=== PATIENT | male | born 1985 | race African-American/Black ===

== ENCOUNTER 2021-03-02 20:52 | Observation (INO) | payer BC, SELFPAY ==
[2021-03-02 20:53] VITALS: BP 110/77; PULSE 96; RESP 16; TEMP 36.3; O2SAT 98; BMI 34.6
--- NOTE | 2021-03-02 21:27 | CT_ITS ---
EXAMINATION : Head CT w/out contrast HISTORY : head injury COMPARISON : 02/18/2014. TECHNIQUE : Multiple contiguous axial images were obtained from the skull base to the vertex without intravenous contrast. A radiation dose optimization technique was used for this scan. FINDINGS : The ventricles and sulci are normal in size. There is no evidence for acute intracranial hemorrhage, mass effect, or midline shift. There is no extra-axial fluid collection. There is normal davis-white differentiation, without CT evidence of acute ischemia or infarct. Increased area of encephalomalacia within the right frontal lobe/insular region. Craniotomy defect in the right frontotemporal region. The orbits are unremarkable. The paranasal sinuses are clear. The mastoid air cells are well-aerated. Moderately sized right frontal scalp hematoma. CT/Brain/Head without Contrast IMPRESSION: Moderately sized right frontal scalp hematoma. No fracture or intracranial hemorrhage. Encephalomalacia of the right frontal lobe/insular region, increased in size since prior CT in 2013. This correlates with history of tumor resection. Electronically Signed: Luther Cummings MD at 22:34 EDT Tel , Service support ,
--- NOTE | 2021-03-02 21:28 | EKG12_ITS ---
Test Reason : SEIZURE Blood Pressure : / mmHG Vent. Rate : 083 BPM Atrial Rate : 083 BPM P-R Int : 160 ms QRS Dur : 086 ms QT Int : 376 ms P-R-T Axes : 067 069 008 degrees QTc Int : 441 ms Normal sinus rhythm Normal ECG Confirmed by VENTURA HENSON, YUMIKO ([id number]), film and video editor ISMAEL FIELDS ([id number]) on 03/03/2021 11:24:33 AM Referred By: HUGO Confirmed By:YUMIKO WHITEHEAD MD
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
[2021-03-02 21:45] LABS: Absolute Lymphocyte Count 1.99 X10^3/uL (0.83-4.51); Basophil# 0.03 X10^3/uL; Basophil% 0.2 % (0-1); Eosinophil# 0.09 X10^3/uL; Eosinophils% 0.7 % (0-5); Hematocrit 45.7 % (40-54); Hemoglobin 15.5 g/dL (13.0-16.5); Lymphocyte # 1.99 X10^3/ul (0.83-4.51); Lymphocyte % 14.9 % (19-41); Mean Corp Hgb Conc 33.9 g/dL (32-36); Mean Corpuscular Hgb 29.6 pg (27.0-32.0); Mean Corpuscular Volume 87.4 fL (80-94); Monocyte# 1.15 X10^3/uL; Monocyte% 8.6 % (0-10); NRBC Flagged by Analyzer 0 % (0-5); Neutrophil # 10.01 X10^3/uL (2.7-7.7); Neutrophil % 75.1 % (47-70); Platelet Count 219 K/mm3 (150-450); RBC Distribution Width CV 13.3 % (11.6-14.6); RBC Distribution Width SD 42.6 fl (35.1-43.9); Red Blood Count 5.23 M/mm3 (4.6-6.2); White Blood Count 13.3 K/mm3 (4.4-11.0)
[2021-03-02 21:57] LABS: Anion Gap 7 (5-15); BUN 13 mg/dL (7-18); BUN/Creat Ratio 10.7 RATIO (10-20); Calcium,Total 8.8 mg/dL (8.5-10.1); Chloride 105 mmol/L (98-107); Creatinine, Serum 1.22 mg/dL (0.70-1.30); EST Glomerular Filtration Rate 72 mL/min (>60); Est Glom Filt Rate - Afr Amer 87 mL/min (>60); Estimated Creatinine Clearance 84.51 ml/min; Glucose 107 mg/dL (74-106); Potassium 4.1 mmol/L (3.5-5.1); Sodium Level 139 mmol/L (136-145)
[2021-03-02] MEDS: Acetaminophen 500 MG Tablet 1000 MG PO (22:01)
[2021-03-02] MEDS: Ondansetron 4 MG/2 ML Vial IV (22:01)
[2021-03-02 23:08] VITALS: PULSE 100; RESP 17; O2SAT 98
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
[2021-03-02 23:34] VITALS: BP 125/78; PULSE 76; RESP 18; TEMP 36.5; O2SAT 98
--- NOTE | 2021-03-02 23:39 | ED.RN ---
dr. maggy talavera with patient eating food.
--- NOTE | 2021-03-02 23:40 | TELEMED_ITS ---
[facility] Telemed has confirmed receipt of a request for visit. This document confirms receipt of the order initiating the consult. To find the results of the consultation, please view the patient's reports for the scanned Telemed Consult.
[2021-03-03] VITALS (10 sets, daily range): BP systolic 116–152; BP diastolic 70–87; PULSE 68–99; RESP 14–18; TEMP 36.1–36.6; O2SAT 96–99; BMI 34.2
[2021-03-03 00:19] LABS: CPK Total, Creatine Kinase 2635 U/L (39-308); Prolactin 5.1 ng/mL
--- NOTE | 2021-03-03 00:37 | MRI_ITS ---
STUDY: MRI BRAIN WITH AND WITHOUT CONTRAST REASON FOR EXAM: Male, 35 years old. seizures, H/O PRIOR BRAIN SX TECHNIQUE: Standardized multiplanar fat and water weighted pulse sequences were obtained. IV 20CC DOTAREM was administered for the contrast portion of the examination. COMPARISON: CT 03/02/2021 FINDINGS: Normal size of the ventricles and extra-axial spaces for the patient''s age. Normal white matter tracts of the supratentorial brain. There is no evidence for recent intracranial ischemia or other cause of cytotoxic edema on diffusion weighted imaging (DWI). Normal T2* images of the brain without demonstrated susceptibility artifact. There is no demonstrated hemosiderin stain. Normal bilateral basal ganglia. Normal thalami. There is no extra-axial fluid accumulation. Normal flow voids within the major intracranial circulation suggesting patency by spin echo criteria. Normal venous enhancement. 3.5 x 4.5 cm oval hyperintense lesion within the anterior right parietal lobe and at the site of prior craniotomy does not demonstrate restricted diffusion or contrast enhancement worrisome for recurrent low-grade glioma. There is mild mass effect with 2 mm of [id number] midline shift (subfalcine herniation). Normal sella turcica, pituitary gland, infundibular stalk, optic chiasm and hypothalamus. Normal tectal plate and pineal gland. Normal midbrain, emily and medulla. Normal cerebellum. Normal basal cisterns. Normal bilateral temporal bones. Normal bilateral internal auditory canals. No demonstrated orbital abnormality, within the constraints of a routine brain study. Normal visualized paranasal sinuses. Normal calvarium and skull base. Normal visualized soft tissue structures. Normal visualized upper cervical spine. MRI/Brain W/WO Contrast IMPRESSION: 4.5 cm oval hyperintensity without contrast enhancement but with mass effect within the anterior right parietal lobe worrisome for recurrent low-grade glioma. Mass effect with 2 mm of [id number] midline shift (subfalcine herniation). Electronically Signed: Floyd Robert MD at 11:59 EDT Tel , Service support ,
[2021-03-03] MEDS: Ibuprofen 400 MG Tablet PO (01:06)
[2021-03-03 06:32] LABS: Absolute Lymphocyte Count 2.48 X10^3/uL (0.83-4.51); Absolute Neutrophil Count 7.5 X10^3/uL (2.0-7.7); Basophil# 0.04 X10^3/uL; Basophil% 0.4 % (0-1); Eosinophil# 0.13 X10^3/uL; Eosinophils% 1.2 % (0-5); Hematocrit 44.2 % (40-54); Hemoglobin 14.6 g/dL (13.0-16.5); Lymphocyte # 2.48 X10^3/ul (0.83-4.51); Mean Corpuscular Hgb 29.3 pg (27.0-32.0); Mean Corpuscular Volume 88.6 fL (80-94); Mean Platelet Vol. 10.9 fl (6.2-12.0); Monocyte# 1.04 X10^3/uL; Monocyte% 9.2 % (0-10); NRBC Flagged by Analyzer 0 % (0-5); Neutrophil # 7.54 X10^3/uL (2.7-7.7); Neutrophil % 66.8 % (47-70); Platelet Count 206 K/mm3 (150-450); RBC Distribution Width CV 13.4 % (11.6-14.6); RBC Distribution Width SD 43.7 fl (35.1-43.9); Red Blood Count 4.99 M/mm3 (4.6-6.2); White Blood Count 11.3 K/mm3 (4.4-11.0)
[2021-03-03 07:00] LABS: ALB/GLOB Ratio 1.2 RATIO (0.9-2.4); AST(SGOT) 76 U/L (15-37); Alanine Aminotransfer ALT/SGPT 87 U/L (16-61); Alkaline Phosphatase 95 U/L (45-117); Anion Gap 6 (5-15); BUN 13 mg/dL (7-18); BUN/Creat Ratio 9.6 RATIO (10-20); Calcium,Total 8.9 mg/dL (8.5-10.1); Chloride 107 mmol/L (98-107); Creatinine, Serum 1.35 mg/dL (0.70-1.30); EST Glomerular Filtration Rate 64 mL/min (>60); Est Glom Filt Rate - Afr Amer 77 mL/min (>60); Estimated Creatinine Clearance 76.37 ml/min; Globulin 3.2 g/dL (2.2-4.2); Glucose 106 mg/dL (74-106); Potassium 3.8 mmol/L (3.5-5.1); Protein, Total 7.2 g/dL (6.4-8.2); Sodium Level 139 mmol/L (136-145)
[2021-03-03] MEDS: Famotidine 20 MG Tablet PO (10:43)
--- NOTE | 2021-03-03 16:18 | PCM.DC.SUM ---
Providers Date of Admission: 03/02/21 Primary Care Physician: No Primary Care Phys Reason For Visit: NEW ONSET SEIZURE Diagnosis Discharge Diagnosis (1) New onset seizure: Status: Acute Code(s): R56.9 - Unspecified convulsions Medications at Discharge Home Medications NK 03/02/21 Hospital Course Operations None Procedures None Summary of Care Provided Minutes Spent on Discharge: 45 Hospital Course: Mr. Corado is a 35-year-old male who presented to the emergency department [facility] on 03/02/2021 for a rash. He reported that when he went to bed he felt fine but when he woke up he had a rash on his chest and face that he thought was related to his cat scratch. He now thinks this is from something he ate the night previously. On arrival to the emergency department he had a laceration on his right forehead petechia around his eyes and bites on his tongue. Significant concerned that he had a seizure. The patient does have history of neurosurgery related to the removal of a benign tumor. He was unable to tell me where this was performed or what the pathological diagnosis was. He does not indicate that he is on any consistent follow-up for this. A CT done in the emergency department showed a moderate right frontal scalp hematoma, encephalomalacia of the right frontal and insular region that had increased in size since 2013. Given the increase in size an MRI was performed after the admitting hospitalist discussed the case with the radiologist on-call. Neurosurgery was consulted in the emergency department and per documentation recommended Keppra 500 mg twice a day after an EEG was obtained irrespective of the EEG results. They also admit recommended follow-up with outpatient neurology. The EEG was done and showed no definitive epileptiform activity. The MRI of the brain showed a 4.5 cm oval hyperintensity without contrast enhancement but with mass-effect on the anterior right parietal lobe that was worrisome for recurrent low-grade glioma and mass-effect with 2 mm of right to left midline shift. Given the read of the MRI I discussed the case with neurosurgery at [facility] and they recommended transfer for further work-up and potential surgery. The patient was accepted by the hospitalist at [facility](Dr. Kramer). Patient was transferred in stable condition. With regards to his rash he was placed on prednisone 40 mg daily for 5 days. Physical Exam Const alert, oriented x3, no apparent distress and average body habitus Constitutional Narrative: Young male sitting up in bed eating lunch, watching television, appears comfortable General Appearance: cooperative, comfortable, well kempt and well developed Orientation / Consciousness: awake, oriented to person, oriented to place and oriented to time HEENT normocephalic HEENT Narrative: Laceration right frontal forehead with dressing in place, no significant drainage Eyes PERRL and EOMs intact bilaterally Resp normal respiratory effort, no retractions, no use of accessory muscles and clear to auscultation bilaterally Cardio regular rate, regular rhythm, S1 normal heart sound, S2 normal heart sound, no murmurs, no rub, no gallops, no clicks and no JVD GI normal to inspection, nondistended, normoactive bowel sounds, soft to palpation, non-tender and non-distended Extremity normal to inspection, full ROM and no clubbing, cyanosis or edema Skin Skin Narrative: Mildly erythematous in the chest region Neuro oriented x3, CN's II-XII intact bilaterally, moves all extremities and no focal motor deficits Neuro Narrative: Reflexes are 2+ out of 4 Sensorium / Orientation: awake, alert, oriented to person, oriented to place and oriented to time Speech: speech normal Motor Exam: strength 5/5 throughout Psych affect normal Weight / BMI Weight Weight: 105.3 kg Body Mass Index (BMI) 34.2 ABG / Lab / Microbiology Data Result Diagrams: 03/03/21 06:20 03/03/21 06:20 Laboratory: Laboratory Results - last 24 hr 03/02/21 03/02/21 03/02/21 21:30 21:30 21:30 WBC 13.3 H RBC 5.23 Hgb 15.5 Hct 45.7 MCV 87.4 MCH 29.6 MCHC 33.9 RDW Std Deviation 42.6 RDW Coeff of Leo 13.3 Plt Count 219 MPV 11.0 Immature Gran % (Auto) 0.500 Neut % (Auto) 75.1 H Lymph % (Auto) 14.9 L [place] % (Auto) 8.6 Eos % (Auto) 0.7 Baso % (Auto) 0.2 Absolute Neuts (auto) 10.0 H Absolute Lymphs (auto) 1.99 Nucleated RBC % 0 Sodium 139 Potassium 4.1 Chloride 105 Carbon Dioxide 27.0 Anion Gap 7 BUN 13 Creatinine 1.22 Estim Creat Clear Calc 84.51 Est GFR (MDRD) Af Amer 87 Est GFR (MDRD) Non-Af 72 BUN/Creatinine Ratio 10.7 Glucose 107 H Calcium 8.8 Total Bilirubin AST ALT Alkaline Phosphatase Total Creatine Kinase 2635 H Total Protein Albumin Globulin Albumin/Globulin Ratio Prolactin 5.1 03/03/21 03/03/21 06:20 06:20 WBC 11.3 H RBC 4.99 Hgb 14.6 Hct 44.2 MCV 88.6 MCH 29.3 MCHC 33.0 RDW Std Deviation 43.7 RDW Coeff of Leo 13.4 Plt Count 206 MPV 10.9 Immature Gran % (Auto) 0.400 Neut % (Auto) 66.8 Lymph % (Auto) 22.0 [place] % (Auto) 9.2 Eos % (Auto) 1.2 Baso % (Auto) 0.4 Absolute Neuts (auto) 7.5 Absolute Lymphs (auto) 2.48 Nucleated RBC % 0 Sodium 139 Potassium 3.8 Chloride 107 Carbon Dioxide 26.0 Anion Gap 6 BUN 13 Creatinine 1.35 H Estim Creat Clear Calc 76.37 Est GFR (MDRD) Af Amer 77 Est GFR (MDRD) Non-Af 64 BUN/Creatinine Ratio 9.6 L Glucose 106 Calcium 8.9 Total Bilirubin 0.60 AST 76 H ALT 87 H Alkaline Phosphatase 95 Total Creatine Kinase Total Protein 7.2 Albumin 4.0 Globulin 3.2 Albumin/Globulin Ratio 1.2 Prolactin Radiography Diagnostic Testing: Radiology Impression Brain CT 03/02/21 21:27 IMPRESSION: Moderately sized right frontal scalp hematoma. No fracture or intracranial hemorrhage. Encephalomalacia of the right frontal lobe/insular region, increased in size since prior CT in 2013. This correlates with history of tumor resection. Electronically Signed: Luther Cummings MD at 22:34 EDT Tel , Service support , Brain MRI 03/03/21 00:37 IMPRESSION: 4.5 cm oval hyperintensity without contrast enhancement but with mass effect within the anterior right parietal lobe worrisome for recurrent low-grade glioma. Mass effect with 2 mm of [id number] midline shift (subfalcine herniation). Electronically Signed: Floyd Robert MD at 11:59 EDT Tel , Service support , Meaningful Use Info Meaningful Use Diagnoses (Choose all that apply): None applicable Discharge Plan Admission Admit Date/Time: 03/02/21 23:31 Attending Provider: Maya Carrillo Primary Care Provider: Care Physician,No Primary Instructions Additional Instructions / Restrictions: Patient Problems: Altered Health Status related to Hospitalization Patient Goals: *Optimal Level of Health *Keep Appointments *Medication Compliance *Remain Safe Discharge Orders/Prescriptions Prescriptions: No Action NK RF: 0 Referrals / Follow Up: Care Physician,No Primary [Primary Care Provider] - Disposition Disposition (needs filled in before D/C Order can be placed): Acute Care Hospital Charges/Coding Visit Charges Inpatient E&M: 22459 Disch Hosp
== END 2021-03-03 17:25 | disposition short-term general hospital (02) ==
LOC: ED 21:41 → PCU 23:55
PROVIDERS: Admitting Provider Hospitalist; Emergency Provider Emergency Medicine; Visit Provider Internal Medicine
DX: R56.9 Unspecified convulsions (principal); R21 Rash and other nonspecific skin eruption; S00.03XA Contusion of scalp, initial encounter; W22.03XA Walked into furniture, initial encounter; Y93.9 Activity, unspecified; Y92.9 Unspecified place or not applicable; Y99.9 Unspecified external cause status; R23.3 Spontaneous ecchymoses; R07.9 Chest pain, unspecified; G93.89 Other specified disorders of brain
CPT/HCPCS: 36415; 70450; 70553; 80048; 80053; 82550; 84146; 85025; 93005; 95819; 96374; 99218; 99285; A9575; A4216; G0378; J2405

== ENCOUNTER 2021-08-21 12:43 | Emergency (ER) | payer BC, SELFPAY ==
[2021-08-21 12:44] VITALS: BP 136/103; PULSE 95; RESP 16; TEMP 36.9; O2SAT 98; BMI 35.9
[2021-08-21 14:26] VITALS: BP 114/87; PULSE 91; RESP 20; O2SAT 98
--- NOTE | 2021-08-21 14:27 | CT_ITS ---
STUDY: CTA CHEST REASON FOR EXAM: Male, 35 years old. Chest pain, history of cancer rule out PE. Cough and chest pain. RADIATION DOSAGE (If Supplied By Facility): CTDIvol = ( 13.80 ) mGy, DLP = ( 527.00 ) mGycm TECHNIQUE: The examination was performed with the intravenous administration of IV 100mL Isovue-370. Post-processing of the angiographic images was performed, with multiplanar reformation and 3D reconstruction. Individualized dose optimization techniques were used for this CT. COMPARISON: None. FINDINGS: Small benign-appearing bilateral axillary lymph nodes. Normal enhancement of the main pulmonary artery and right and left pulmonary arteries. Normal enhancement of the bilateral peripheral pulmonary arteries. There is no demonstrated pulmonary embolism. Normal thoracic aorta and visualized great vessels. There is no demonstrated aortic dissection. Normal heart and pericardium. Normal mediastinum. Normal hilar regions. Normal visualized trachea and bronchi. The lungs are well expanded. Azygos lobe. Normal pulmonary parenchyma. Normal pleura. Normal chest wall structures. Normal osseous structures. Fatty infiltration of liver. There is a 2.6 cm x 2.5 cm cyst in the upper medial pole of the left kidney. CT/CTA Chest W/WO Contrast IMPRESSION: Diffuse fatty infiltration of the liver. The lungs are clear. No evidence of pulmonary embolism. Electronically Signed: Taras Mathews MD at 15:41 EST , Service support ,
--- NOTE | 2021-08-21 14:28 | EKG12_ITS ---
Test Reason : CP Blood Pressure : / mmHG Vent. Rate : 085 BPM Atrial Rate : 085 BPM P-R Int : 154 ms QRS Dur : 084 ms QT Int : 370 ms P-R-T Axes : 067 062 027 degrees QTc Int : 440 ms Normal sinus rhythm Normal ECG Confirmed by VENTURA HENSON, YUMIKO ([id number]), sound editor ISMAEL FIELDS ([id number]) on 08/25/2021 9:35:39 AM Referred By: Confirmed By:YUMIKO WHITEHEAD MD
--- NOTE | 2021-08-21 14:29 | ED.VIS.CHEST ---
HPI History of Present Illness Chief Complaint: Chest Pain Detail of Chief Complaint: Chest pain Informant: patient Onset/Context/Timing Onset: Today and Hours Activity at onset: sudden Timing: Continuous Quality: Positive for Sharp Location: Substernal Current Severity: Mild Maximum Severity: Moderate Worsened By: Nothing Relieved By: Nothing Associated Symptoms: Positive for Dyspnea; Negative for Nausea, Vomiting, Diaphoresis, Cough, Fever, Lightheadedness, Acid Reflux and Palpitations Narrative Narrative: Patient is a 35-year-old male with history of brain cancer who was sent to the emergency department by Dr. Toni Dunbar to evaluate for PE. Apparently the medication he is taking for his brain tumor can cause blood clots. Patient denies fever, chills night sweats. He denies headache. No change in vision or blurred vision. [place] decreased hearing or ringing in his ears. He denies rhinorrhea or congestion. Denies sore throat. He denies cough. Nothing exacerbates or precipitated the chest pain. Nothing has alleviated the chest pain. Patient denies abdominal pain, nausea, vomiting diarrhea. Patient denies leg pain, swelling discoloration. Prior Similar Symptoms: No Recent Illness/Hospitalization: Yes CVD Risk Factors: Negative for Hypertension, Diabetes, Hypercholesterolemia, Family History 1' </=55 and Smoking PE Risk Factors: Positive for Cancer and - (Chemotherapeutic agent is known to cause VTE); Negative for Recent Travel/Surgery, Recent Immobilization, Prior DVT or PE and OCP + Smoking + >/=35 TAD Risk Factors: Negative for Marfan's Syndrome, Hypertension and Family History [facility] Medical History Brain tumor Home Medications levetiracetam 1,000 mg PO DAILY 08/21/21 [History Last Taken Unknown] ondansetron HCl 8 mg PO DAILY 08/21/21 [History Last Taken Unknown] temozolomide 360 mg PO DAILY 08/21/21 [History Last Taken Unknown] Allergy/AdvReac Type Severity Reaction Status Date / Time acetaminophen [From Vicodin] Allergy Itching Verified 08/21/21 12:44 hydrocodone bitartrate Allergy Itching Verified 08/21/21 12:44 [From Vicodin] shellfish derived Allergy Angioedema Verified 08/21/21 12:44 Family History Other Diabetes Surgical History H/O brain surgery Social History (Updated 08/21/21 @ 14:[address] Lamberto Velasquez MD) household members: none Smoking Status: Never smoker substance use type: does not use ROS ROS ED Constitutional Constitutional ED: Denies chills, fever(s), subjective, sweats or weight loss Eyes Eyes: Denies none ENT ENT ED: Denies ear pain, rhinorrhea or sore throat Cardiovascular Cardiovascular: Reports as per HPI; Denies orthopnea Respiratory/Chest Respiratory/Chest: Reports dyspnea; Denies cough, dyspnea on exertion, orthopnea or sputum Gastrointestinal Gastrointestinal: Denies abdominal pain, diarrhea, nausea or vomiting Genitourinary Genitourinary ED: Denies dysuria, hematuria or urinary frequency Integumentary Denies rash Neurologic Neurologic: Denies headache(s), paresthesias or weakness Psychiatric Psychiatric: Reports anxiety; Denies depression Hematologic/Lymphatic Hematologic/Lymphatic: Denies easy bleeding or easy bruising EXAM Physical Exam Const Vital Signs: 08/21/21 12:44 08/21/21 14:26 08/21/21 16:55 Temperature 98.5 F Temperature Source Temporal Pulse Rate 95 91 71 Respiratory Rate 16 20 H Respiratory Effort Normal Blood Pressure 136/103 H 114/87 H 122/79 H Blood Pressure Mean 114 96 93 Pulse Ox 98 98 98 Oxygen Delivery Method Room Air Room Air Room Air 08/21/21 18:14 Temperature Temperature Source Pulse Rate 67 Respiratory Rate 17 Respiratory Effort Blood Pressure 112/77 Blood Pressure Mean 88 Pulse Ox 97 Oxygen Delivery Method Room Air Positive well nourished and well developed General Appearance ED: well developed and NAD; Negative for pallor HEENT Reports moist mucous membranes HEENT Narrative: Ears normal. Nares patent. normocephalic and atraumatic Eyes PERRL and EOMs intact bilaterally General Eye ED: Negative for pale conjunctiva or scleral icterus Neck no lymphadenopathy, supple and no JVD Chest Wall inspection of chest normal and palpation of chest normal Resp normal respiratory effort Effort and Inspection: respiratory distress Cardio regular rate, regular rhythm, S1 normal heart sound and S2 normal heart sound GI normal to inspection, nondistended, normoactive bowel sounds, soft to palpation, non-tender and non-distended Back/Spine no CVA tenderness and no thoracic nor lumbar tenderness Extremity normal to inspection Extremity Narrative: There is no asymmetry, swelling, discoloration, leg vein distention, palpable cords or tenderness along the distribution of the deep venous system. General Extremety ED: Negative for edema or tenderness General Extremity: Negative for edema Skin no rashes or lesions noted and no wounds General Skin Exam: Negative for jaundice or pallor Heart Score History: Slightly/Non-Suspicious ECG: Normal Age: </= 45 years Risk Factors: No Risk Factors Score: 0 MDM MDM MDM Narrative Medical decision making narrative: With history of cancer on chemotherapeutic causes VTE will obtain CTA to rule out PE. Lab Data Attestation: I reviewed the patient's lab results. Labs: Laboratory Results - last 24 hr 08/21/21 08/21/21 14:24 14:24 WBC 4.5 RBC 5.28 Hgb 15.3 Hct 45.7 MCV 86.6 MCH 29.0 MCHC 33.5 RDW Std Deviation 41.6 RDW Coeff of Leo 13.2 Plt Count 209 MPV 11.0 Immature Gran % (Auto) 0.000 Neut % (Auto) 57.2 Lymph % (Auto) 25.3 [place] % (Auto) 14.2 H Eos % (Auto) 2.9 Baso % (Auto) 0.4 Absolute Neuts (auto) 2.6 Absolute Lymphs (auto) 1.14 Nucleated RBC % 0 Sodium 139 Potassium 3.8 Chloride 106 Carbon Dioxide 25.0 Anion Gap 8 BUN 12 Creatinine 1.11 Estim Creat Clear Calc 92.89 Est GFR (MDRD) Af Amer 97 Est GFR (MDRD) Non-Af 80 BUN/Creatinine Ratio 10.8 Glucose 100 Calcium 9.0 Radiography Diagnostic Testing: Clinical Impression(s) from Imaging Studies Chest CTA 08/21/21 14:27 IMPRESSION: Diffuse fatty infiltration of the liver. The lungs are clear. No evidence of pulmonary embolism. Electronically Signed: Taras Mathews MD at 15:41 EST , Service support , Treatment and Re-Evaluation Comments:: Patient was informed that his CT was negative for any abnormality. Discharge Plan Triage Chief Complaint: Chest Pain ED Provider: Velasquez,Lamberto Dx/Rx/DC Orders Clinical Impression: Chest pain Instructions: ED Pain, Acute, Uncertain Cause Prescriptions: No Action ondansetron HCl 8 mg tablet 8 mg PO DAILY RF: 0 levetiracetam 1,000 mg tablet 1,000 mg PO DAILY RF: 0 temozolomide 180 mg capsule 360 mg PO DAILY RF: 0 Primary Care Provider: Care Physician,No Primary Referrals: Toni Dunbar DO [STAFF PHYSICIAN] - As Needed Care Physician,No Primary [Primary Care Provider] - Disposition Disposition: Home, Self Care
[2021-08-21 14:38] LABS: Absolute Lymphocyte Count 1.14 X10^3/uL (0.83-4.51); Absolute Neutrophil Count 2.6 X10^3/uL (2.0-7.7); Basophil# 0.02 X10^3/uL; Basophil% 0.4 % (0-1); Eosinophil# 0.13 X10^3/uL; Eosinophils% 2.9 % (0-5); Hematocrit 45.7 % (40-54); Hemoglobin 15.3 g/dL (13.0-16.5); Lymphocyte # 1.14 X10^3/ul (0.83-4.51); Lymphocyte % 25.3 % (19-41); Mean Corp Hgb Conc 33.5 g/dL (32-36); Mean Corpuscular Volume 86.6 fL (80-94); Monocyte# 0.64 X10^3/uL; Monocyte% 14.2 % (0-10); NRBC Flagged by Analyzer 0 % (0-5); Neutrophil # 2.58 X10^3/uL (2.7-7.7); Neutrophil % 57.2 % (47-70); Platelet Count 209 K/mm3 (150-450); RBC Distribution Width CV 13.2 % (11.6-14.6); RBC Distribution Width SD 41.6 fl (35.1-43.9); Red Blood Count 5.28 M/mm3 (4.6-6.2); White Blood Count 4.5 K/mm3 (4.4-11.0)
--- NOTE | 2021-08-21 14:39 | EKG12_ITS ---
Test Reason : CP Blood Pressure : / mmHG Vent. Rate : 079 BPM Atrial Rate : 079 BPM P-R Int : 152 ms QRS Dur : 084 ms QT Int : 372 ms P-R-T Axes : 064 057 019 degrees QTc Int : 426 ms Normal sinus rhythm Normal ECG When compared with ECG of 21-AUG-2021 13:00, MANUAL COMPARISON REQUIRED, DATA IS UNCONFIRMED Confirmed by VENTURA HENSON, YUMIKO ([id number]), editor index ISMAEL FIELDS ([id number]) on 08/26/2021 7:31:18 AM Referred By: KUNAL Confirmed By:YUMIKO WHITEHEAD MD
[2021-08-21 14:49] LABS: Anion Gap 8 (5-15); BUN 12 mg/dL (7-18); BUN/Creat Ratio 10.8 RATIO (10-20); Chloride 106 mmol/L (98-107); Creatinine, Serum 1.11 mg/dL (0.70-1.30); EST Glomerular Filtration Rate 80 mL/min (>60); Est Glom Filt Rate - Afr Amer 97 mL/min (>60); Estimated Creatinine Clearance 92.89 ml/min; Glucose 100 mg/dL (74-106); Potassium 3.8 mmol/L (3.5-5.1); Sodium Level 139 mmol/L (136-145)
[2021-08-21 16:55] VITALS: BP 122/79; PULSE 71; O2SAT 98
[2021-08-21 18:14] VITALS: BP 112/77; PULSE 67; RESP 17; O2SAT 97
[2021-08-21 19:03] VITALS: BP 124/90; PULSE 89; RESP 12; O2SAT 97
== END 2021-08-21 19:04 | disposition home or self-care (01) ==
PROVIDERS: Emergency Provider Emergency Medicine
DX: R07.9 Chest pain, unspecified (principal); C71.9 Malignant neoplasm of brain, unspecified
CPT/HCPCS: 71275; 80048; 85025; 93005; 99285; Q9967

== ENCOUNTER 2021-09-08 12:12 | Emergency (ER) | payer BC, SELFPAY ==
[2021-09-08 12:13] VITALS: BP 124/81; PULSE 83; RESP 18; TEMP 35.6; O2SAT 97; BMI 35.4
--- NOTE | 2021-09-08 12:45 | EKG12_ITS ---
Test Reason : CP Blood Pressure : / mmHG Vent. Rate : 076 BPM Atrial Rate : 076 BPM P-R Int : 164 ms QRS Dur : 086 ms QT Int : 372 ms P-R-T Axes : 055 055 011 degrees QTc Int : 418 ms Normal sinus rhythm Normal ECG Confirmed by VENTURA HENSON, YUMIKO ([id number]), editor sound VADIM SHABAZZ ([id number]) on 09/11/2021 9:08:38 AM Referred By: Confirmed By:YUMIKO WHITEHEAD MD
[2021-09-08 13:00] LABS: Absolute Lymphocyte Count 1.73 X10^3/uL (0.83-4.51); Absolute Neutrophil Count 3.6 X10^3/uL (2.0-7.7); Basophil# 0.03 X10^3/uL; Basophil% 0.5 % (0-1); Eosinophils% 3.1 % (0-5); Hematocrit 43.4 % (40-54); Hemoglobin 14.8 g/dL (13.0-16.5); Lymphocyte # 1.73 X10^3/ul (0.83-4.51); Mean Corp Hgb Conc 34.1 g/dL (32-36); Mean Corpuscular Hgb 29.9 pg (27.0-32.0); Mean Corpuscular Volume 87.7 fL (80-94); Mean Platelet Vol. 11.4 fl (6.2-12.0); Monocyte# 0.82 X10^3/uL; Monocyte% 12.8 % (0-10); NRBC Flagged by Analyzer 0 % (0-5); Neutrophil # 3.61 X10^3/uL (2.7-7.7); Neutrophil % 56.3 % (47-70); Platelet Count 231 K/mm3 (150-450); RBC Distribution Width SD 42.1 fl (35.1-43.9); Red Blood Count 4.95 M/mm3 (4.6-6.2); White Blood Count 6.4 K/mm3 (4.4-11.0)
[2021-09-08] MEDS: Mag Hydrox/Al Hydrox/Simeth 30 ML UDC PO (13:16)
[2021-09-08 13:25] VITALS: BP 109/79; PULSE 67; RESP 14; O2SAT 99
--- NOTE | 2021-09-08 13:25 | ED.VIS.CHEST ---
HPI History of Present Illness Chief Complaint: Chest Pain Informant: patient Narrative Narrative: 35-year-old male presents to the emergency department with chest pain. Patient states he has a history of brain cancer and seizures. 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 He was awoken with a midsternal pain that radiated into his back. No prior DVT PE history. No fevers. He denies any belching or increased gas. Patient was in the emergency department earlier this month for evaluation of chest pain. [facility] Medical History (Updated 09/08/21 @ 14:[address] Sam Lara DO) Brain tumor Seizure disorder Home Medications levetiracetam 1,000 mg PO DAILY 08/21/21 [History Last Taken Unknown] ondansetron HCl 8 mg PO DAILY 08/21/21 [History Last Taken Unknown] temozolomide 360 mg PO DAILY 08/21/21 [History Last Taken Unknown] omeprazole 20 mg PO DAILY #30 capsule 09/08/21 [Rx Last Taken Unknown] Allergy/AdvReac Type Severity Reaction Status Date / Time acetaminophen [From Vicodin] Allergy Itching Verified 09/08/21 12:15 hydrocodone bitartrate Allergy Itching Verified 09/08/21 12:15 [From Vicodin] shellfish derived Allergy Angioedema Verified 09/08/21 12:15 Family History Other Diabetes Surgical History H/O brain surgery Social History household members: none Smoking Status: Never smoker substance use type: does not use ROS ROS ED Constitutional Constitutional ED: Denies chills, fever(s) or weight loss Eyes Eyes: Denies change in vision or diplopia ENT ENT ED: Denies ear pain, rhinorrhea or sore throat Cardiovascular Cardiovascular: Denies chest pain, orthopnea, palpitations or racing heartbeat Respiratory/Chest Respiratory/Chest: Denies cough, dyspnea or orthopnea Gastrointestinal Gastrointestinal: Denies abdominal pain, diarrhea, nausea or vomiting Genitourinary Genitourinary ED: Denies dysuria, hematuria or urinary frequency Musculoskeletal Musculoskeletal: Denies arthralgias or myalgias Integumentary Denies abscess or rash Neurologic Neurologic: Denies headache(s) or weakness Psychiatric Psychiatric: Denies anxiety, depression, suicidal ideation or suicidal thoughts Endocrine Endocrinology: Denies polydipsia, polyphagia or polyuria Allergic/Immunologic Allergic/Immunologic ED: Denies mouth swelling, tongue swelling or urticaria EXAM Physical Exam Const Vital Signs: 09/08/21 12:13 09/08/21 12:48 09/08/21 13:25 Temperature 96.1 F L Temperature Source Temporal Pulse Rate 83 67 Respiratory Rate 18 14 Respiratory Effort Normal Non-Labored Blood Pressure 124/81 H 109/79 Blood Pressure Mean 95 89 Pulse Ox 97 99 Oxygen Delivery Method Room Air Room Air Positive well nourished and well developed General Appearance ED: well developed HEENT Reports normocephalic, head/scalp atraumatic, TM's clear and moist mucous membranes normocephalic and atraumatic Tympanic Membrane ED: Yes TM's clear Eyes PERRL and EOMs intact bilaterally Neck no lymphadenopathy, supple and no JVD Resp normal respiratory effort and clear to auscultation bilaterally Cardio regular rate, regular rhythm and no murmurs GI normal to inspection, nondistended, normoactive bowel sounds and non-tender Palpation: soft Back/Spine no CVA tenderness and normal ROM Extremity normal to inspection General Extremety ED: Negative for edema General Extremity: Negative for edema Neuro oriented x3 and CN's II-XII intact bilaterally Sensorium / Orientation: alert Motor Exam: strength 5/5 throughout Psych mental status grossly normal Mood & Affect: Negative for depressed or tearful Skin no rashes or lesions noted and no wounds MDM MDM MDM Narrative Medical decision making narrative: CBC BMP and troponin were normal. Patient received a GI cocktail noted that it seemed to help. I think the patient ate dinner went to bed likely suffered some reflux resulting in esophageal spasm. He may benefit from a a trial of Pepcid. Patient return if worsening or concerns. Lab Data Attestation: I reviewed the patient's lab results. Labs: Laboratory Results - last 24 hr 09/08/21 09/08/21 09/08/21 12:30 12:30 13:25 WBC 6.4 RBC 4.95 Hgb 14.8 Hct 43.4 MCV 87.7 MCH 29.9 MCHC 34.1 RDW Std Deviation 42.1 RDW Coeff of Leo 13.0 Plt Count 231 MPV 11.4 Immature Gran % (Auto) 0.300 Neut % (Auto) 56.3 Lymph % (Auto) 27.0 [place] % (Auto) 12.8 H Eos % (Auto) 3.1 Baso % (Auto) 0.5 Absolute Neuts (auto) 3.6 Absolute Lymphs (auto) 1.73 Nucleated RBC % 0 Sodium Cancelled Cancelled Potassium Cancelled Cancelled Chloride Cancelled Cancelled Carbon Dioxide Cancelled Cancelled Anion Gap Cancelled Cancelled BUN Cancelled Cancelled Creatinine Cancelled Cancelled Estim Creat Clear Calc Cancelled Cancelled Est GFR (MDRD) Af Amer Cancelled Cancelled Est GFR (MDRD) Non-Af Cancelled Cancelled BUN/Creatinine Ratio Cancelled Cancelled Glucose Cancelled Cancelled Calcium Cancelled Cancelled Troponin I High Sens Cancelled Cancelled 09/08/21 13:51 WBC RBC Hgb Hct MCV MCH MCHC RDW Std Deviation RDW Coeff of Leo Plt Count MPV Immature Gran % (Auto) Neut % (Auto) Lymph % (Auto) [place] % (Auto) Eos % (Auto) Baso % (Auto) Absolute Neuts (auto) Absolute Lymphs (auto) Nucleated RBC % Sodium 141 Potassium 3.6 Chloride 108 H Carbon Dioxide 27.0 Anion Gap 6 BUN 12 Creatinine 1.18 Estim Creat Clear Calc 87.38 Est GFR (MDRD) Af Amer 90 Est GFR (MDRD) Non-Af 74 BUN/Creatinine Ratio 10.2 Glucose 100 Calcium 8.8 Troponin I High Sens 4 EKG Initial EKG: Attestation: I personally reviewed and interpreted this EKG as follows: Comments: Normal sinus rhythm with a ventricular rate of 76 bpm Discharge Plan Triage Chief Complaint: Chest Pain ED Provider: Sam Lara Dx/Rx/DC Orders Clinical Impression: GERD (gastroesophageal reflux disease), Chest pain Instructions: What Is GERD? Prescriptions: New omeprazole [omeprazole] 20 MG capsule 20 mg PO DAILY Qty: 30 RF: 0 No Action ondansetron HCl 8 mg tablet 8 mg PO DAILY RF: 0 levetiracetam 1,000 mg tablet 1,000 mg PO DAILY RF: 0 temozolomide 180 mg capsule 360 mg PO DAILY RF: 0 Primary Care Provider: Care Physician,No Primary Referrals: Care Physician,No Primary [Primary Care Provider] - Disposition Disposition: Home, Self Care
[2021-09-08 14:15] LABS: Anion Gap 6 (5-15); BUN 12 mg/dL (7-18); BUN/Creat Ratio 10.2 RATIO (10-20); Calcium,Total 8.8 mg/dL (8.5-10.1); Chloride 108 mmol/L (98-107); Creatinine, Serum 1.18 mg/dL (0.70-1.30); EST Glomerular Filtration Rate 74 mL/min (>60); Est Glom Filt Rate - Afr Amer 90 mL/min (>60); Estimated Creatinine Clearance 87.38 ml/min; Glucose 100 mg/dL (74-106); Potassium 3.6 mmol/L (3.5-5.1); Sodium Level 141 mmol/L (136-145); Troponin-I HS 4 pg/mL (3.0-78.0)
[2021-09-08 14:45] VITALS: BP 95/57; PULSE 69; RESP 15; O2SAT 98
== END 2021-09-08 14:46 | disposition home or self-care (01) ==
PROVIDERS: Emergency Provider Emergency Medicine
DX: K21.9 Gastro-esophageal reflux disease without esophagitis (principal); R07.9 Chest pain, unspecified; G40.909 Epilepsy, unspecified, not intractable, without status epilepticus; Z79.899 Other long term (current) drug therapy; Z85.841 Personal history of malignant neoplasm of brain
CPT/HCPCS: 80048; 84484; 85025; 93005; 99285; A4216

== ENCOUNTER 2022-04-03 09:24 | Emergency (ER) | payer BC, SELFPAY ==
[2022-04-03 09:25] VITALS: BP 116/71; PULSE 86; RESP 16; TEMP 36.6; O2SAT 98; BMI 33.3
[2022-04-03] MEDS: MethylPREDNISolone 125 MG/2 ML Vial IV (09:53)
[2022-04-03] MEDS: DiphenhydrAMINE 50 MG/ML Syringe IV (09:53)
[2022-04-03] MEDS: Famotidine 200 MG/20 ML MDV 20 MG in 0.9% Normal Saline (Pres. free 8 ML 300 MG IV (09:53)
--- NOTE | 2022-04-03 10:56 | EX.ED.DYSGE1 ---
HPI History of Present Illness Chief Complaint: Allergic Reaction Informant: patient Narrative Narrative: Presents for concerns allergic reaction to his chemo medication, temozolomide. History of brain cancer a year ago resection right frontal. He is followed by Dr. Muñoz. He states status post radiation he is currently on chemo every 23 days for which he takes medication twice a day for 5 days. He took the medication first day 8 AM by 830am Facial swelling and itching. No lip or tongue swelling. Itching hives abdomen and arm. He did not eat anything this morning. No history of similar. States medication delivered by [facility], it looks similar to his previous medications. He called nursing line, brought in by EMS for evaluation. No medications given. Prior similar symptoms: No PFSH PFSH Medical History Brain tumor Seizure disorder Home Medications levetiracetam 1,000 mg tablet 1,000 mg PO BID 08/21/21 [History Last Taken Unknown] ondansetron HCl 8 mg tablet 8 mg PO DAILY 08/21/21 [History Last Taken Unknown] temozolomide 180 mg capsule 140 mg PO DAILY 08/21/21 [History Last Taken Unknown] famotidine 20 mg tablet (Pepcid) 20 mg PO BID #10 tabs 04/03/22 [Rx Last Taken Unknown] prednisone 20 mg tablet 60 mg PO DAILY #12 tabs 04/03/22 [Rx Last Taken Unknown] Allergy/AdvReac Type Severity Reaction Status Date / Time temozolomide Allergy Intermediate Swelling Verified 04/03/22 11:52 acetaminophen [From Vicodin] Allergy Itching Verified 04/03/22 09:24 hydrocodone bitartrate Allergy Itching Verified 04/03/22 09:24 [From Vicodin] shellfish derived Allergy Angioedema Verified 04/03/22 09:24 Family History Other Diabetes Surgical History H/O brain surgery Social History household members: none Smoking Status: Never smoker substance use type: does not use ROS ROS ED Constitutional Constitutional ED: Denies chills, fever(s) or sweats Eyes Eyes: Denies change in vision ENT ENT ED: Reports other Details: Facial swelling and itching. ; Denies dysphagia or sore throat Cardiovascular Cardiovascular: Denies chest pain, leg edema, palpitations or racing heartbeat Respiratory/Chest Respiratory/Chest: Denies cough, dyspnea or dyspnea on exertion Gastrointestinal Gastrointestinal: Denies abdominal pain, diarrhea, nausea or vomiting Genitourinary Genitourinary ED: Denies dysuria, hematuria or urinary frequency Musculoskeletal Musculoskeletal: Denies back pain, extremity pain or neck pain Integumentary Denies rash or wounds Neurologic Neurologic: Denies headache(s), paresthesias or weakness Allergic/Immunologic Allergic/Immunologic ED: Reports urticaria EXAM Physical Exam Const Vital Signs: 04/03/22 09:25 04/03/22 11:04 04/03/22 12:05 Temperature 97.8 F Temperature Source Temporal Pulse Rate 86 79 83 Respiratory Rate 16 14 15 Blood Pressure 116/71 115/80 115/78 Blood Pressure Mean 86 91 Pulse Ox 98 99 97 Oxygen Delivery Method Room Air Room Air Positive well nourished and well developed General Appearance ED: well developed and NAD HEENT Reports moist mucous membranes HEENT Narrative: Maxillary swelling, mild swelling around the lips, there is no tongue swelling no stridor airway patent. normocephalic and atraumatic Eyes PERRL, EOMs intact bilaterally and conjunctivae normal General Eye ED: Yes normal appearance of both eyes Neck no lymphadenopathy and supple General: Negative for tenderness Chest Wall Chest: Negative for tenderness Resp normal respiratory effort and normal air movement Effort and Inspection: symmetric chest movement; Negative for respiratory distress Cardio regular rate, regular rhythm and no murmurs Peripheral Pulses: pulses 2+ throughout GI normal to inspection, nondistended, normoactive bowel sounds and non-tender Palpation: Negative for guarding or rebound tenderness present Back/Spine no CVA tenderness and no thoracic nor lumbar tenderness Extremity normal to inspection General Extremety ED: Negative for edema or tenderness General Extremity: Negative for edema Neuro oriented x3 and no sensory deficits noted Sensorium / Orientation: awake and alert Skin Skin Narrative: Scattered urticarial lesions abdomen bilateral arms. MDM MDM MDM Narrative Medical decision making narrative: Patient with hives and swelling, placed on a monitor, IV Solu-Medrol, Benadryl, Pepcid is ordered. Will be monitored. 1155: Multiple reevaluations stable resolved urticarial lesions. Resolved facial swelling. Patient's only culprit would be this medication he did not eat. I discussed with his oncology team, Dr. Dunbar, updated on his presentation. He will hold his temozolomide, office will call him on Wednesday for new plan of care. Prescription for continued Pepcid and prednisone he has Benadryl at home. 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 All questions answered. Return precautions. Discharge Plan Triage Chief Complaint: Allergic Reaction ED Provider: Tre Cardoza Dx/Rx/DC Orders Clinical Impression: Allergic reaction to drug, Facial swelling, Urticaria, History of glioma Instructions: ED Allergic Reaction Local Other, ED Hives (Adult) Prescriptions: New prednisone 20 mg tablet 60 mg PO DAILY Qty: 12 0RF Rx Instructions: start 04/04/22 famotidine [Pepcid] 20 mg tablet 20 mg PO BID Qty: 10 0RF No Action ondansetron HCl 8 mg tablet 8 mg PO DAILY levetiracetam 1,000 mg tablet 1,000 mg PO BID temozolomide 180 mg capsule 140 mg PO DAILY Primary Care Provider: Care Physician,No Primary Referrals: Toni Dunbar DO [STAFF PHYSICIAN] - 3-5 Days Care Physician,No Primary [Primary Care Provider] - Activity Restrictions/Additional Instructions: Do not take your temozolomide, take continued steroids and Pepcid. Dr. Dunbar office will call you on Wednesday for new plan of care. Disposition Disposition: Home, Self Care Discharge Date/Time: 04/03/22 12:14
[2022-04-03 11:04] VITALS: BP 115/80; PULSE 79; RESP 14; O2SAT 99
--- NOTE | 2022-04-03 11:04 | CM.ED ---
SW Note Referral Source: Case Find Referral Reason: No Primary Care Physician (PCP) SW reviewed chart and noted that patient has no PCP. SW provided patient with list of [facility] Physician List for reference. No other issues or concerns voiced at this time. SW remains available for any additional needs. Plan: Provided patient with PCP information Maite THOMAS
[2022-04-03 12:05] VITALS: BP 115/78; PULSE 83; RESP 15; O2SAT 97
== END 2022-04-03 12:14 | disposition home or self-care (01) ==
PROVIDERS: Emergency Provider Emergency Medicine; Visit Provider Emergency Medicine
DX: L50.9 Urticaria, unspecified (principal); T45.1X5A Adverse effect of antineoplastic and immunosuppressive drugs, initial encounter; Z92.21 Personal history of antineoplastic chemotherapy; Z85.841 Personal history of malignant neoplasm of brain; Z79.899 Other long term (current) drug therapy
CPT/HCPCS: 96365; 96375; 99285; A4216; J3490

== ENCOUNTER 2024-04-10 21:26 | Emergency (ER) | payer BC, SELFPAY ==
[2024-04-10 21:27] VITALS: BP 139/94; PULSE 95; RESP 18; TEMP 35.1; O2SAT 98; BMI 35.9
--- NOTE | 2024-04-10 22:04 | RAD_ITS ---
INDICATION: back pain EXAMINATION/TECHNIQUE: X-RAY - XR Spine Lumbar 2 or 3 Views COMPARISON: None. FINDINGS: VERTEBRAE: Preserved vertebral body height. No fracture. No spondylolisthesis. Preservation of the normal lumbar lordosis. No significant facet arthropathy. DISCS: Disc spaces are maintained. INCLUDED ABDOMEN: Included bowel gas pattern is non-obstructive. RAD/Lumbar Spine 2 or 3 Views IMPRESSION: Unremarkable study. Electronically Signed: Nathan Dimas MD at 22:34 EDT ,
--- NOTE | 2024-04-10 22:07 | ED.VIS.BACK ---
HPI History of Present Illness Chief Complaint: Back Narrative Narrative: 38-year-old male presenting with back pain. He states he has had it for a couple of months. He denies any direct trauma to the back. No loss of bladder or bowel control. No saddle anesthesia. Patient states that for his job he throws a lot of pallets thinks he may have injured himself doing this. He states it hurts in the left lower back. [facility] Medical History Brain tumor Seizure disorder Home Medications ?Medication ?Instructions ?Recorded ?Last Taken ?Type levetiracetam 1,000 mg tablet 1,000 mg PO BID 08/21/21 04/10/24 History cyclobenzaprine 10 mg tablet 10 mg PO TID PRN Muscle Spasm #20 04/10/24 Unknown Rx TABLETS naproxen 500 mg tablet (Naprosyn) 500 mg PO BID PRN pain #20 tabs 04/10/24 Unknown Rx Allergy/AdvReac Type Severity Reaction Status Date / Time temozolomide Allergy Intermediate Swelling Verified 04/10/24 21:27 acetaminophen (From Vicodin) Allergy Itching Verified 04/10/24 21:27 hydrocodone bitartrate (From Allergy Itching Verified 04/10/24 21:27 Vicodin) shellfish derived Allergy Angioedema Verified 04/10/24 21:27 Family History Other Diabetes Surgical History H/O brain surgery Social History household members: none Smoking Status: Never smoker substance use type: does not use ROS ROS ED Constitutional Constitutional ED: Denies chills, fever(s) or sweats Eyes Eyes: Denies blurry vision or change in vision ENT ENT ED: Denies ear pain or sore throat Cardiovascular Cardiovascular: Denies chest pain, palpitations or racing heartbeat Respiratory/Chest Respiratory/Chest: Denies cough, dyspnea or sputum Gastrointestinal Gastrointestinal: Denies abdominal pain, constipation, diarrhea, nausea or vomiting Genitourinary Genitourinary ED: Denies dysuria, hematuria or urinary frequency Musculoskeletal Musculoskeletal: Reports back pain; Denies arthralgias, myalgias or neck pain Integumentary Denies abscess, Abrasions or rash Neurologic Neurologic: Denies headache(s), paresthesias or weakness Psychiatric Psychiatric: Denies anxiety, depression, suicidal ideation or suicidal thoughts Endocrine Endocrinology: Denies polydipsia or polyuria EXAM Physical Exam Const Vital Signs: 04/10/24 21:27 Temperature 95.2 F L Temperature Source Temporal Pulse Rate 95 Respiratory Rate 18 Blood Pressure 139/94 H Blood Pressure Mean 109 Pulse Ox 98 Oxygen Delivery Method Room Air Positive well nourished General Appearance ED: NAD HEENT Reports moist mucous membranes Eyes PERRL and EOMs intact bilaterally Neck no lymphadenopathy Resp normal respiratory effort and clear to auscultation bilaterally Cardio regular rate and regular rhythm GI normal to inspection, nondistended, normoactive bowel sounds Back/Spine Back/Spine Narrative: Mild tenderness palpation left lumbar paraspinal musculature. No midline spinal tenderness, deformity, step-off. No rashes or bruising Extremity normal to inspection Neuro oriented x3 and no sensory deficits noted Motor Exam: strength 5/5 throughout Psych mental status grossly normal Skin no rashes or lesions noted MDM MDM MDM Narrative Medical decision making narrative: 38-year-old male presenting with back pain. will obtain a lumbar spine x-ray and he is medicated with Norflex and Toradol. On reevaluation patient is feeling improved. He request the work limitation note. I did write for limited stooping, bending, kneeling, limited weight lifting to 20 pounds. X-rays of the lumbar spine and interpreted by myself show no nothing acute. Will write the patient for Naprosyn and Flexeril for home. Impression: 1. Lumbar strain Lab Data Attestation: I reviewed the patient's lab results. Radiography Diagnostic Testing: Clinical Impression(s) from Imaging Studies Lumbar Spine X-Ray 04/10/24 22:04 IMPRESSION: Unremarkable study. Electronically Signed: Nathan Dimas MD at 22:34 EDT , Discharge Plan Triage Chief Complaint: Back ED Provider: Brandon Sutton Dx/Rx/DC Orders Instructions: ED Back Sprain/Strain Prescriptions: New cyclobenzaprine 10 mg tablet 10 mg PO TID PRN (Reason: Muscle Spasm) Qty: 20 0RF naproxen [Naprosyn] 500 mg tablet 500 mg PO BID PRN (Reason: pain) Qty: 20 0RF No Action levetiracetam 1,000 mg tablet 1,000 mg PO BID Stand Alone Forms: ED Work / School Excuse Primary Care Provider: Care Physician,No Primary Referrals: Care Physician,No Primary [Primary Care Provider] - Print Language: [place] Disposition Disposition: Home, Self Care
[2024-04-10] MEDS: Orphenadrine 60 MG/2 ML Ampul IM (22:17)
[2024-04-10] MEDS: Ketorolac 15 MG/ML Vial IM (22:17)
[2024-04-10 23:39] VITALS: BP 125/82; PULSE 91; RESP 16; TEMP 36.7; O2SAT 94
== END 2024-04-10 23:42 | disposition home or self-care (01) ==
PROVIDERS: Emergency Provider Student in an Organized Health Care Education/Training Program; Visit Provider Student in an Organized Health Care Education/Training Program
DX: S39.012A Strain of muscle, fascia and tendon of lower back, initial encounter (principal); X58.XXXA Exposure to other specified factors, initial encounter
CPT/HCPCS: 72100; 96372; 99283

== ENCOUNTER → 2025-06-21 | Outpatient (CLI) | payer BC, SELFPAY ==
[2025-06-21 14:56] LABS: Hematocrit 46.2 % (40-54); Hemoglobin 15.6 g/dL (13.0-16.5); Mean Corp Hgb Conc 33.8 g/dL (32-36); Mean Corpuscular Volume 87.5 fL (80-94); Mean Platelet Vol. 11.5 fl (6.2-12.0); Platelet Count 204 K/mm3 (150-450); RBC Distribution Width CV 13.5 % (11.6-14.6); RBC Distribution Width SD 43.3 fl (35.1-43.9); Red Blood Count 5.28 M/mm3 (4.6-6.2); White Blood Count 9.9 K/mm3 (4.4-11.0)
[2025-06-21 19:14] LABS: AST(SGOT) 32 U/L (<=37); Alanine Aminotransfer ALT/SGPT 48 U/L (<=46); Albumin, Serum 4.7 g/dL (3.5-5.0); Alkaline Phosphatase 70 U/L (40-129); Anion Gap 11 (5-15); BUN 17 mg/dL (4-19); BUN/Creat Ratio 15.0 RATIO (10-20); Calcium,Total 9.7 mg/dL (7.6-11.0); Carbon Dioxide 26.0 mmol/L (21.0-32.0); Chloride 102 mmol/L (98-108); Cholesterol 154 mg/dL (<=200); Globulin 2.8 g/dL (2.2-4.2); Glucose 86 mg/dL (70-99); Low Density Lipoprotein Calc. 83 mg/dL; Potassium 3.9 mmol/L (3.3-5.1); Triglycerides 149 mg/dL; Very Low Density Lipoprotein 30 mg/dL (5-40); cholesterol:hdl ratio screen 3.77
[2025-06-21 19:46] LABS: Vitamin D,25 Hydroxy 6.6 ng/mL (30-100)
== END | disposition home or self-care (01) ==
LOC: MFPLAB 11:47
PROVIDERS: Visit Provider Family Medicine
DX: Z00.00 Encounter for general adult medical examination without abnormal findings (principal); Z13.220 Encounter for screening for lipoid disorders; Z13.1 Encounter for screening for diabetes mellitus; R53.83 Other fatigue
CPT/HCPCS: 36415; 80053; 80061; 82306; 84443; 85027

== ENCOUNTER → 2025-07-05 | Outpatient (CLI) | payer BC, SELFPAY ==
[2025-07-09 17:08] LABS: Thyroid Stim Immunoglob <0.10 IU/L (0.00-0.55)
== END | disposition home or self-care (01) ==
LOC: MFPLAB 12:20
PROVIDERS: Visit Provider Family Medicine
DX: E03.8 Other specified hypothyroidism (principal)
CPT/HCPCS: 36415; 84439; 84445